=== PATIENT | male | born 1985 | race Caucasian/White ===

== ENCOUNTER 2018-01-05 09:11 | Emergency (ER) | payer SELFPAY ==
[~2018-01-05] VITALS: Ht 185.4 cm; Wt 78.5 kg
[~2018-01-05 09:11] MED LIST: NO HOME MEDICATIONS
[2018-01-05 09:15] VITALS: BP 127/65; TEMP 97.5
[2018-01-05] MEDS ORDERED: NORCO 325 MG-51 TAB PO (09:54)
[2018-01-05 10:13] VITALS: PULSE 61
== END 2018-01-05 10:13 | disposition home or self-care (01) ==
LOC: COL.ER 09:11
DX: S69.92XA Unspecified injury of left wrist, hand and finger(s), initial encounter (principal); Z98.890 Other specified postprocedural states; W01.0XXA Fall on same level from slipping, tripping and stumbling without subsequent striking against object, initial encounter
CPT/HCPCS: Q4050

== ENCOUNTER 2018-01-17 10:09 | Emergency (ER) | payer BC ==
[~2018-01-17] VITALS: Ht 185.4 cm; Wt 81.8 kg
[~2018-01-17 10:09] MED LIST changes: +NORCO 325 MG-51 TAB PO
[2018-01-17 10:41] LABS: BASO % 0.4 % (0.0-2.0); EOS # 0.1 (0.0-0.7); EOS % 0.9 % (0-4.0); GRAN % 65.7 % (42.2-75.2); HEMATOCRIT 45.3 % (42.0-52.0); HEMOGLOBIN 15.6 g/dl (13.5-18.0); LYMPH # 2.6 (1.2-3.4); LYMPH % 24.1 % (20.0-51.0); MEAN CELL VOLUME 87 fl (80.0-100.0); MEAN CORPUSCULAR HEMOGLOBIN 30 pg (27.0-31.0); MEAN CORPUSCULAR HGB CONC 34 g/dl (33.0-37.0); MEAN PLATELET VOLUME 9.2 fl (7.4-10.4); MONO # 0.9 (0.1-0.6); MONO % 8.5 % (1.7-9.3); PLATELET COUNT 205 K/mm3 (130-400); RED BLOOD COUNT 5.24 M/mm3 (4.20-5.60); REDCELL DISTRIBUTION WIDTH-CV 13.2 % (11.5-14.5)
[2018-01-17 11:00] LABS: ALBUMIN 4.3 gm/dL (3.5-5.0); BILIRUBIN,TOTAL 1.2 mg/dL (0.0-1.0); C-REACTIVE PROTEIN 1.2 mg/dL (0.0-0.9); CALCIUM 9.5 mg/dL (8.4-10.2); CREATININE, serum 0.83 mg/dL (0.66-1.25); POTASSIUM 3.6 mmol/L (3.4-5.0); TOTAL PROTEIN 7.6 gm/dL (6.4-8.2)
[2018-01-17 11:20] LABS: COLLECTION METHOD CLEAN CATCH
[2018-01-17] MEDS ORDERED: ZOFRAN ODT4 MG PO (11:22)
[2018-01-17 11:34] LABS: MUCOUS Present /lpf; PH 5 (5-8); SQUAMOUS EPITHELIAL None Seen /hpf; URINE APPEARANCE Clear; URINE BACTERIA None Seen /hpf; URINE BILIRUBIN Negative (NEGATIVE); URINE BLOOD Negative (NEGATIVE); URINE COLOR Amber; URINE GLUCOSE Negative (NEGATIVE); URINE KETONE Trace (NEGATIVE); URINE LEUKOCYTE ESTERASE Negative (NEGATIVE); URINE NITRATE Negative (NEGATIVE); URINE PROTEIN(semi-quant) 1+ (NEGATIVE); URINE RBC 0-2 /hpf; URINE UROBILINOGEN Negative (NEGATIVE)
[2018-01-17 12:34] VITALS: BP 114/60; PULSE 72; TEMP 98.1
== END 2018-01-17 12:36 | disposition home or self-care (01) ==
LOC: COL.ER 10:09
PROVIDERS: Physician Assistant
DX: R11.10 Vomiting, unspecified (principal); Z87.891 Personal history of nicotine dependence
CPT/HCPCS: J2405; J7030